=== PATIENT | male | born 1955 | race Caucasian/White ===

== ENCOUNTER 2021-10-10 20:19 | Inpatient (IN) | payer OTHER ==
[~2021-10-10] VITALS: Ht 175.3 cm; Wt 172.4 kg
[~2021-10-10 20:19] MED LIST: OMNICEF 300 MG300 MG PO
[2021-10-10 21:06] LABS: HEMOGLOBIN 14.7 gm/dl (14.0-17.5); RED BLOOD COUNT 4.63 M/UL (4.20-5.50); WHITE BLOOD COUNT 17.8 K/UL (4.5-11.0)
[2021-10-10 21:29] LABS: BUN/CREATININE RATIO 19 (0-10)
[2021-10-11] MEDS ORDERED: PROVENTIL HFA6.7 GM INH (10:37)
[2021-10-11] MEDS ORDERED: ATORVASTATIN CA20 MG PO (10:38)
[2021-10-11] MEDS ORDERED: GLIPIZIDE ER10 MG PO (10:38)
[2021-10-11] MEDS ORDERED: LISINOPRIL20 MG PO (10:39)
[2021-10-11] MEDS ORDERED: SOLIQUA 100 UNIT3 ML SQ (10:39)
[2021-10-11] MEDS ORDERED: FUSION CAPSULE1 EACH PO (10:42)
[2021-10-12 07:41] LABS: HEMOGLOBIN 12.8 gm/dl (14.0-17.5)
[2021-10-12 07:49] LABS: RED BLOOD COUNT 4.12 M/UL (4.20-5.50); WHITE BLOOD COUNT 8.2 K/UL (4.5-11.0)
[2021-10-12 08:11] LABS: BUN/CREATININE RATIO 14 (0-10)
[2021-10-13 05:53] LABS: HEMOGLOBIN 13.3 gm/dl (14.0-17.5); RED BLOOD COUNT 4.27 M/UL (4.20-5.50); WHITE BLOOD COUNT 7.3 K/UL (4.5-11.0)
[2021-10-13 06:53] LABS: BUN/CREATININE RATIO 17 (0-10)
[2021-10-13] MEDS ORDERED: LEVOFLOXACIN750 MG PO (12:23)
== END 2021-10-13 14:57 | disposition home or self-care (01) | DRG 872 ==
LOC: ER1 20:19 → CDU 10-11 03:18 → M/S 10-11 19:45
PROVIDERS: Internal Medicine; Student in an Organized Health Care Education/Training Program; ADMIT Internal Medicine
DX: A41.51 Sepsis due to Escherichia coli [E. coli] (principal); N39.0 Urinary tract infection, site not specified; E87.2 Acidosis; Z68.43 Body mass index [BMI] 50.0-59.9, adult; Z20.822 Contact with and (suspected) exposure to COVID-19; E66.01 Morbid (severe) obesity due to excess calories; G47.33 Obstructive sleep apnea (adult) (pediatric); E11.65 Type 2 diabetes mellitus with hyperglycemia; E78.5 Hyperlipidemia, unspecified; I48.91 Unspecified atrial fibrillation; I10 Essential (primary) hypertension; Z85.820 Personal history of malignant melanoma of skin; Z79.01 Long term (current) use of anticoagulants; Z82.49 Family history of ischemic heart disease and other diseases of the circulatory system
CPT/HCPCS: 36415; 71045; 80048; 80053; 81001; 82550; 82553; 82962; 83036; 83605; 83735; 84439; 84443; 84484; 85025; 85379; 87040; 87077; 87086; 87186; 93005; 96365; 96367; 96375; 96376; 99285; J0696; J1650; J2405; J2543; J7030; Q9967; U0002